=== PATIENT | male | born 1990 | race Two or more races ===

== ENCOUNTER 2018-07-22 18:25 | Emergency (ER) | payer SELFPAY ==
[~2018-07-22] VITALS: Ht 170.2 cm; Wt 73.5 kg
[2018-07-22 18:25] VITALS: BP 108/66
== END 2018-07-22 18:59 | disposition home or self-care (01) ==
LOC: ER 18:38
DX: K60.2 Anal fissure, unspecified (principal); K64.4 Residual hemorrhoidal skin tags; F17.200 Nicotine dependence, unspecified, uncomplicated
CPT/HCPCS: 99283; 99406; A4606; Z7610